=== PATIENT | male | born 2005 | race Caucasian/White ===

== ENCOUNTER 2025-05-22 15:59 | Inpatient (IN) ==
--- NOTE | 2025-05-22 16:19 | Emergency Department Note ---
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 He notes yesterday he noticed some tightness in his bilateral upper extremities. He did a full body workout in combination with rock climbing on Sunday. Following this he was having some pain in his bilateral arms. They got blood work and his CK was greater than 13,000 and referred him in. He denies any headache or change in vision. No chest pain or shortness of breath. No nausea, vomiting or diarrhea. No dysuria, urgency, or frequency. No other exacerbating or remitting factors. Patient denies any tingling or numbness throughout the arms or legs. ADDITIONAL HISTORY OBTAINED: Family is present bedside notes that [place] blood [place] [address]. Chronic Medical/Social Conditions Affecting Care: Per HPI PAST MEDICAL HISTORY:See Below PAST SURGICAL HISTORY:See Below FAMILY HISTORY:See Below SOCIAL HISTORY:See Below HOME MEDICATIONS:See Below ALLERGIES:See Below VITALS:See Below PHYSICAL EXAMINATION: GENERAL: Sitting up in bed, alert, well appearing, well nourished, no distress, non-toxic EYE EXAM: normal conjunctiva. OROPHARYNX: no exudate, no erythema, lips, buccal mucosa, and tongue normal and mucous membranes are moist NECK: supple, no nuchal rigidity, no adenopathy, non-tender LUNGS: Clear to auscultation. Normal chest wall mechanics HEART: no murmurs, S1 normal and S2 normal ABDOMEN: abdomen soft, non-tender, normo-active bowel sounds, no masses, no rebound or guarding. UPPER EXTREMITIES: upper extremities are grossly normal. LOWER EXTREMITIES: Flexion extension of bilateral shoulders elbows wrist and grass is intact with pain with extension of the right elbow. Tightness/fullness in the right biceps. Radial pulse 2 out of 4. Gross station intact. NEURO EXAM: Normal sensorium, cranial nerves II-XII grossly intact, normal speech, no gross weakness of arms, no gross weakness of legs. MEDICAL DECISION MAKING: Patient is a 20-year-old male who presents ER for the above-stated complaint. IV was established and blood work was obtained. Labs showed no significant leukocytosis or anemia. INR unremarkable. BMP was fairly reassuring. LFTs with an AST of 160 and ALT of 57. CK was elevated at 14,000. Lipase was normal. UA without hematuria. Patient was ordered to be liters of normal saline. Compartments were soft within his arms with good pulses and no tingling or numbness upon admission. Hospitalist was consulted due to the rhabdomyolysis and discussed for admission for further evaluation management and treatment. Consults/Care Managements Discussions: Per MDM Triage Nursing notes reviewed. Limited review of prior medical records performed Vital Signs: reviewed and remarkable for HTN Differential diagnosis: Infection, dehydration, metabolic abnormality, hypo/hyperglycemia, electrolyte disturbance, anemia, hypoxia, cardiac sources, intracerebral event, toxicologic, neurologic, as well as other pathologies. ER treatment provided: See below Diagnostics interpreted by me include EKG and cardiac monitoring as listed below: -Cardiac Monitoring: An order was placed for continuous cardiac monitoring. The monitor shows a rate of 70 with sinus rhythm. -ECG: none -Laboratory studies:Interpreted by me as stated above in MDM and shown below. Imaging studies: Xrays: As interpreted by me:none CTs show: none Procedures:none Critical Care: None Past Med/Surg History Problem List (Updated 05/22/25 @ 18:40 by Clay Hough DO) Arm pain (Acute) Transaminitis (Acute) Rhabdomyolysis (Acute) Social History Smoking Status: Never smoker Preferred Language: Jamaican Feels Safe at Home: Yes Allergies Allergies Allergy/AdvReac Type Severity Reaction Status Date / Time animal dander Allergy Severe Induces Verified 05/22/25 18:15 asthma attack, sneezing Milk Containing Products Allergy Intermediate Gastrointestinal Verified 05/22/25 18:15 (Dairy) Upset Home Meds Home Medications Medication Instructions Recorded Confirmed No Known Home Medications 05/22/25 05/22/25 Results & Data (ED) Vital Signs Vital Signs - 24 hr 05/22/25 16:07 05/22/25 16:32 05/22/25 17:51 Temperature 36.7 C Temperature Source Oral Pulse Rate 61 68 Pulse Rate [Apical] 67 Respiratory Rate 18 19 16 Respiratory Effort / Characteristics Non-Labored Spontaneous Non-Labored Spontaneous Respiratory Depth Normal Normal Respiratory Pattern Regular Blood Pressure 143/80 H Blood Pressure [Right Radial Artery] 177/81 H Blood Pressure Mean 101 Blood Pressure Mean [Right Radial Artery] 113 Pulse Oximetry 98 98 99 Oxygen Delivery Method Room Air Room Air Room Air Sepsis Recent Fever Within 48 Hours No Sepsis New/Unexplained Change in Mental Status N/A Sepsis Action Taken by Nursing No Action Required Laboratory Data 05/22/25 16:25 05/22/25 16:25 Lab Results 05/22/25 05/22/25 Range/Units 16:25 Unknown WBC 10.33 (4.8-10.8) K/ul RBC 5.11 (4.70-6.10) M/uL Hgb 15.0 (14.0-18.0) g/dl Hct 42.5 (42.0-52.0) % MCV 83.2 (80.0-100.0) fL MCH 29.4 (25.0-34.0) pg MCHC 35.3 (32.0-36.0) g/dL RDW Std Deviation 36.1 L (36.4-46.3) fL RDW Coeff of Maliha 12.0 (11.5-14.5) % Plt Count 215 (130-400) K/uL MPV 11.5 (9.4-12.4) fL Immature Gran % (Auto) 0.2 % Neut % (Auto) 65.8 % Lymph % (Auto) 20.4 % [place] % (Auto) 10.0 % Eos % (Auto) 3.4 % Baso % (Auto) 0.2 % Neut # (Auto) 6.80 H (1.40-6.50) K/uL Lymph # (Auto) 2.11 (1.20-3.40) K/uL [place] # (Auto) 1.03 H (0.11-0.59) K/uL Eos # (Auto) 0.35 (0.00-0.50) K/uL Baso # (Auto) 0.02 (0.00-0.20) K/uL Immature Gran # (Auto) 0.02 (0.01-0.20) K/uL PT 11.4 (9.0-12.0) Seconds INR 1.1 (0.9-1.1) Sodium 138 (136-145) mmol/L Potassium 4.1 (3.5-5.1) mmol/L Chloride 105 (98-107) mmol/L Carbon Dioxide 26 (21-32) mmol/L Anion Gap 7 (3-11) BUN 16 (6-23) mg/dl Creatinine 0.97 (0.6-1.4) mg/dl Est Cr Clr Drug Dosing 144.0 ml/min eGFR 113.90 BUN/Creatinine Ratio 16.5 (10-20) Glucose 93 (70-99(Fasting)) mg/dl Calcium 9.4 (8.6-10.3) mg/dl Total Bilirubin 0.9 (0.2-1.0) mg/dl AST 163 H (13-39) U/L ALT 57 H (7-52) U/L Alkaline Phosphatase 154 H (34-104) U/L Total Creatine Kinase 43349 H (30-223) U/L Total Protein 7.2 (6.0-8.3) gm/dl Albumin 4.5 (3.4-5.0) gm/dl Globulin 2.7 (2.5-4.0) gm/dl Albumin/Globulin Ratio 1.7 (0.9-2) Lipase 20 (11-82) U/L Urine Color Yellow Urine Appearance Clear (Clear) Urine pH 7.5 (4.5-7.5) Ur Specific [place] 1.004 (1.000-1.030) Urine Protein Negative (Negative) Urine Glucose (UA) Negative (Negative) Urine Ketones Negative (Negative) Urine Blood Negative (Negative) Urine Nitrite Negative (Negative) Urine Bilirubin Negative (Negative) Urine Urobilinogen Negative (Negative) Ur Leukocyte Esterase Negative (Negative) Urine Comment Administered Medications Sodium Chloride (Nss) 500 mls @ 175 mls/hr IV .Q2H52M [facility] Stop: 05/22/25 20:36 Last Admin: 05/22/25 18:24 Dose: 175 mls/hr Documented By: HARIS Discontinued Medications Sodium Chloride (Nss) 1,000 mls @ 999 mls/hr IV .Q1H1M [facility] Stop: 05/22/25 18:15 Last Infusion: 05/22/25 18:16 Dose: Infused Documented By: Admin: 05/22/25 17:11 Dose: 999 mls/hr Documented By: Infusion: 05/22/25 17:11 Dose: Infused Documented By: Admin: 05/22/25 16:20 Dose: 999 mls/hr Documented By: HARIS Discharge Plan Visit Data Chief Complaint: Abnormal Labs/Diagnostic Testing Stated Complaint: ABN LABS, IV FOR RHABDO, REF BY ED Provider: Clay Hough Discharge Problem: Rhabdomyolysis, Transaminitis, Arm pain Condition: Fair Forms Stand Alone Forms: [employer] Prescriptions Prescriptions: No Action No Known Home Medications Referrals Referrals: PCP,NO [Physician] - Discharge Problem: Rhabdomyolysis Qualifiers: Rhabdomyolysis type: non-traumatic Qualified Code(s): M62.82 - Rhabdomyolysis Arm pain Qualifiers: Laterality: bilateral Qualified Code(s): M79.601 - Pain in right arm
[2025-05-22] MEDS: SODIUM CHLORIDE 0.9% 1,000 ML IV SCH (16:20)
[2025-05-22 16:37] LABS: Hematocrit (blood only) 42.5 % (42.0-52.0); Hemoglobin 15.0 g/dl (14.0-18.0); Immature Granulocytes # (auto) 0.02 K/uL (0.01-0.20); Immature Granulocytes % (auto) 0.2 %; Mean Corpuscular Hemoglobin 29.4 pg (25.0-34.0); Mean Corpuscular Volume 83.2 fL (80.0-100.0); Platelet Count 215 K/uL (130-400); RDW Standard Deviation 36.1 fL (36.4-46.3); Red Blood Count 5.11 M/uL (4.70-6.10); White Blood Count 10.33 K/ul (4.8-10.8)
[2025-05-22 16:51] LABS: Appearance Urine Clear (Clear); Glucose Urine UA Negative (Negative)
[2025-05-22 16:55] LABS: Anion Gap 7.0 (3-11); Blood Urea Nitrogen 16.0 mg/dl (6-23); Calcium 9.4 mg/dl (8.6-10.3); Carbon Dioxide 26.0 mmol/L (21-32); Chloride 105.0 mmol/L (98-107); Creatinine Clr Calc Pharmacy 144.0 ml/min; Glucose 93.0 mg/dl (70-99(Fasting)); Potassium 4.1 mmol/L (3.5-5.1); Sodium 138.0 mmol/L (136-145)
[2025-05-22 17:04] LABS: INR 1.1 (0.9-1.1); Prothrombin Time 11.4 Seconds (9.0-12.0)
[2025-05-22 17:12] LABS: Alanine Aminotransferase 57.0 U/L (7-52); Albumin Globulin Ratio 1.7 (0.9-2); Alkaline Phosphatase 154.0 U/L (34-104); Bilirubin,Total 0.9 mg/dl (0.2-1.0); Globulin 2.7 gm/dl (2.5-4.0); Lipase 20.0 U/L (11-82); Total Protein 7.2 gm/dl (6.0-8.3)
[2025-05-22 17:17] LABS: Creatine Kinase 14588.0 U/L (30-223)
[2025-05-22] MEDS ORDERED: ALUMINUM/MAGNESIUM SUSP 30 ML UDC PO PRN (17:56)
[2025-05-22] MEDS ORDERED: ONDANSETRON INJ 2 MG/ML 2 ML VIAL IV PRN (17:56)
--- NOTE | 2025-05-22 18:05 | History & Physical Report ---
Date of Service May 22, 2025 Assessment & Plan (1) Rhabdomyolysis: Admission and Anticipated Discharge Date Admission Date: Mr. 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 on 05/22/2025, presented with one day of severe upper extremity muscle pain and found to has rhabdomyolysis with CK level of 15,000, his AST and ALT is also elevated no dark urine, no shortness of breath, no back pain. he will be admitted for IV fluid, monitor of creatinine function and monitoring of CK level. 1. acute rhabdomyolysis heavy lifting started 1-2 weeks ago symptom started since 05/21 IV fluid trend CK, creatinine and AST, ALT function discussed about oral hydration with 8-10 glass of water discussed about monitoring creatinine function discussed about no heavy lifting for minimum of 4 weeks History of Present Illness Chief Complaint: significant upper extremity pain since yesterday rhabdomyolysis (CK > 15,000) Primary Care Provider: [facility] Mr. 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 however, since yesterday he has significant upper extremity pain and came here for evaluation, found to has hypertension with SBP of 177/[place] [address] and AST 163 and ALT of 57, he will be admitted to medicine services for IV fluid for his rhabdomyolysis, denied any dark color urine, hematuria, no abdominal pain, no nausea, no vomiting discussed avoiding heavy lifting for 4 weeks and encourage drinking 8-10 glass of water daily for next 1-2 weeks his mother and his grandmother was updated in person Allergies Allergy/AdvReac Type Severity Reaction Status Date / Time animal dander Allergy Severe Induces Unverified 05/22/25 17:33 asthma attack, sneezing Milk Containing Products Allergy Intermediate Gastrointestinal Unverified 05/22/25 17:33 (Dairy) Upset Home Medications Medication Instructions Recorded Confirmed Type No Known Home Medications 05/22/25 05/22/25 History Past Med/Surg History Problem List (Updated 05/22/25 @ 18:02 by Zelda Lackey DO) Rhabdomyolysis Social History Smoking Status: Never smoker Preferred Language: Lithuanian Feels Safe at Home: Yes Review of Systems Review of Systems: Constitutional: No Weight Change, No Fever, No Chills, Cardiovascular: No Chest Pain, No SOB, No PND, No Dyspnea on Exertion, No Orthopnea, Respiratory: No Cough, No Sputum, No Wheezing, No Dyspnea Gastrointestinal: No Nausea, No Vomiting, No Diarrhea, No Constipation, No Pain, No Heartburn, No Anorexia, No Dysphagia MSK: + for muscle achiness; + for upper extrmeity pain Genitourinary: no dysuria; no dark color urine Neuro: No Weakness, No Numbness, No Paresthesias, No Loss of Consciousness, No Syncope, No Dizziness Heme/Lymph: No Bruising, No Bleeding, No Transfusions History, No Lymphadenopathy Endocrine: No Polyuria, No Polydipsia, No Temperature Intolerance Physical Exam Physical Exam: VITALS: Reviewed. WEIGHT/BMI reviewed. GEN: Healthy appearing, well-developed, NAD. PSYCH: Good Judgment. AOx3. Normal memory, mood, and affect. HEENT -Head: NC/AT; NECK: Supple, with no masses. CV: RRR, no m/r/g. LUNGS: CTAB, no w/r/c. ABD: Soft, NT/ND, NBS, no masses or organomegaly. : no CVA tenderness SKIN: Warm, well perfused. No skin rashes or abnormal lesions. MSK: No deformities, Normal gait. EXT: No clubbing, cyanosis, or edema. NEURO: AAOx3; no slurred speech; 5/5 strength. Results & Data Results & Data Vital Signs (Past 12 Hours) Vital Signs Temp Pulse Pulse Resp BP BP Pulse Ox 05/22/25 17:51 67 16 177/81 H 99 05/22/25 16:32 68 19 98 05/22/25 16:07 36.7 C 61 18 143/80 H 98 O2 Del Method 05/22/25 17:51 Room Air 05/22/25 16:32 Room Air 05/22/25 16:07 Room Air Laboratory Results Laboratory Results - last 72 hr 05/22/25 05/22/25 16:25 Unknown WBC 10.33 RBC 5.11 Hgb 15.0 Hct 42.5 MCV 83.2 MCH 29.4 MCHC 35.3 RDW Std Deviation 36.1 L RDW Coeff of [place] 12.0 Plt Count 215 MPV 11.5 Immature Gran % (Auto) 0.2 Neut % (Auto) 65.8 Lymph % (Auto) 20.4 [place] % (Auto) 10.0 Eos % (Auto) 3.4 Baso % (Auto) 0.2 Neut # (Auto) 6.80 H Lymph # (Auto) 2.11 [place] # (Auto) 1.03 H Eos # (Auto) 0.35 Baso # (Auto) 0.02 Immature Gran # (Auto) 0.02 PT 11.4 INR 1.1 Sodium 138 Potassium 4.1 Chloride 105 Carbon Dioxide 26 Anion Gap 7 BUN 16 Creatinine 0.97 Est Cr Clr Drug Dosing 144.0 eGFR 113.90 BUN/Creatinine Ratio 16.5 Glucose 93 Calcium 9.4 Total Bilirubin 0.9 AST 163 H ALT 57 H Alkaline Phosphatase 154 H Total Creatine Kinase 66981 H Total Protein 7.2 Albumin 4.5 Globulin 2.7 Albumin/Globulin Ratio 1.7 Lipase 20 Urine Color Yellow Urine Appearance Clear Urine pH 7.5 Ur Specific [place] 1.004 Urine Protein Negative Urine Glucose (UA) Negative Urine Ketones Negative Urine Blood Negative Urine Nitrite Negative Urine Bilirubin Negative Urine Urobilinogen Negative Ur Leukocyte Esterase Negative Urine Comment Medications Administered Current Inpatient Medications Acetaminophen (Acetaminophen 325 Mg Tab) 650 mg PO NOW [facility] Stop: 06/23/25 17:59 Al Hydrox/Mg Hydrox/Simethicone (Aluminum/Magnesium Susp 30 Ml Udc) 30 ml PO Q6H PRN PRN Reason: Dyspepsia Stop: 06/21/25 17:55 Sodium Chloride (Nss) 1,000 mls @ 999 mls/hr IV .Q1H1M [facility] Stop: 05/22/25 18:15 Last Admin: 05/22/25 17:11 Dose: 999 mls/hr Sodium Chloride (Nss) 500 mls @ 175 mls/hr IV .Q2H52M [facility] Stop: 05/22/25 20:36 Melatonin (Melatonin 3 Mg Tab) 3 mg PO HS PRN PRN Reason: Insomnia Stop: 06/21/25 17:55 Ondansetron HCl (Ondansetron Inj 2 Mg/Ml 2 Ml Vial) 4 mg IV Q6H PRN PRN Reason: Nausea Stop: 06/21/25 17:55 PG Care Time/CCT Total # of Minutes Spent Total Time Spent with Patient: Total time spent is greater than 50% in coordination of care (as documented) at patient's floor/unit and/or counseling patient: Coding Level of Care Code 07568 INT INP/OBS CARE MIN Diagnoses Rhabdomyolysis M62.82 Time Spent (min) 30
[2025-05-22] MEDS: SODIUM CHLORIDE 0.9% 500 ML IV SCH (18:24)
--- NOTE | 2025-05-22 20:23 | Orthopedic Consultation ---
Date of Consultation May 22, 2025 Assessment & Plan (1) Arm pain: (2) Transaminitis: (3) Rhabdomyolysis: Plan Admit for observation IV hydration and serial laboratory analysis. 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 At present he notes his pain is relatively well-managed he has not had any real significant escalating trouble. He is sitting comfortably and playing cards with several of his fellow teammates. He denies any nausea vomiting chest pain shortness of breath fever chills. Physical exam reveals some fullness of the distal biceps and the proximal forearm right slightly greater than left he is right-hand dominant. There is no extensive pain with passive stretch of the elbow or of the wrist. Median radial ulnar suprascapular x-ray nerves are all normal. Pulses are good capillary refill is brisk. Laboratory work reveals CPK levels in the 13-15,000 range. LFTs slightly elevated. Urinalysis is clean. Patient states that his urine is not changed in color and is well hydrated and light yellow. He denies any back pain. Assessment rhabdomyolysis acute bilateral upper extremities right slightly greater than left. No evidence of compartment syndrome by physical exam or by appearance of the patient. Plan is to continue with hydration and serial laboratory assessments. Will need to avoid any heavy exertion with his arms for at least another 2 to 3 weeks. (1) Arm pain Laterality: bilateral Qualified Code(s): M79.601 - Pain in right arm; M79.602 - Pain in left arm (3) Rhabdomyolysis Rhabdomyolysis type: non-traumatic Qualified Code(s): M62.82 - Rhabdomyolysis
[2025-05-22] MEDS: ACETAMINOPHEN 325 MG TAB PO SCH (22:04)
[2025-05-22] MEDS: MELATONIN 3 MG TAB PO PRN (22:04)
[2025-05-23 07:36] LABS: Alanine Aminotransferase 56.0 U/L (7-52); Albumin Globulin Ratio 1.7 (0.9-2); Alkaline Phosphatase 121.0 U/L (34-104); Anion Gap 5.0 (3-11); Bilirubin,Total 1.4 mg/dl (0.2-1.0); Blood Urea Nitrogen 11.0 mg/dl (6-23); Calcium 9.2 mg/dl (8.6-10.3); Carbon Dioxide 27.0 mmol/L (21-32); Chloride 107.0 mmol/L (98-107); Creatine Kinase 9585.0 U/L (30-223); Creatinine Clr Calc Pharmacy 155.2 ml/min; Globulin 2.3 gm/dl (2.5-4.0); Glucose 101.0 mg/dl (70-99(Fasting)); Magnesium 1.8 mg/dl (1.7-2.4); Potassium 4.0 mmol/L (3.5-5.1); Sodium 139.0 mmol/L (136-145); Total Protein 6.3 gm/dl (6.0-8.3)
[2025-05-23] MEDS: SODIUM CHLORIDE 0.9% 1,000 ML IV SCH (07:45)
--- NOTE | 2025-05-23 13:23 | Hospitalist Progress Note ---
Date of Service May 23, 2025 Assessment & Plan (1) Rhabdomyolysis: Plan Mr. Lee Meyer is a 20 yo male with no PMH, he been having resuming strenous exericse for one week, on 05/22/2025, presented with one day of significant upper extremity pain, and found to has rhabdomolysis with CK > 15k, started on IV fluid, orthopedic following the patient, monitor for compartment sydnrome acute rhabdomyolysis upper extremity pain IV fluid, monitor for calcium, phosphate, magnesium and CK level dc barrier, ongoing significant upper extremity pain and elevaed CK level of 9000. discussed about weight lifting restriction for minimum of 4 weeks. Admission and Anticipated Discharge Date Admission Date: May 22, 2025 Subjective patient still have significant upper extremity pain and swelling his CK level still elevated; increasing the IV fluid no dark urine, no abdominal pain discussed about weight restriction for minimal of 4 weeks and oral hydration mother and grandmother updated at bedside Physical Exam Physical Exam: VITALS: Reviewed. WEIGHT/BMI reviewed. GEN: Healthy appearing, well-developed, NAD. MSK: + for edema of upper extremity no crepitus appreciated tender to palpation -Head: NC/AT; NECK: Supple, with no masses. CV: RRR, no m/r/g. LUNGS: on room air; no respiratory distress SKIN: Warm, well perfused. No skin rashes or abnormal lesions. NEURO: AAOx3; Results & Data Results & Data Vital Signs (Past 12 Hours) Vital Signs Temp Pulse Resp BP Pulse Ox O2 Del Method 05/23/25 07:52 36.8 C 55 L 16 132/72 99 Room Air Laboratory Results Laboratory Results - last 72 hr 05/22/25 05/22/25 05/23/25 16:25 Unknown 06:07 WBC 10.33 RBC 5.11 Hgb 15.0 Hct 42.5 MCV 83.2 MCH 29.4 MCHC 35.3 RDW Std Deviation 36.1 L RDW Coeff of [place] 12.0 Plt Count 215 MPV 11.5 Immature Gran % (Auto) 0.2 Neut % (Auto) 65.8 Lymph % (Auto) 20.4 [place] % (Auto) 10.0 Eos % (Auto) 3.4 Baso % (Auto) 0.2 Neut # (Auto) 6.80 H Lymph # (Auto) 2.11 [place] # (Auto) 1.03 H Eos # (Auto) 0.35 Baso # (Auto) 0.02 Immature Gran # (Auto) 0.02 PT 11.4 INR 1.1 Sodium 138 139 Potassium 4.1 4.0 Chloride 105 107 Carbon Dioxide 26 27 Anion Gap 7 5 BUN 16 11 Creatinine 0.97 0.90 Est Cr Clr Drug Dosing 144.0 155.2 eGFR 113.90 124.61 BUN/Creatinine Ratio 16.5 12.2 Glucose 93 101 H Calcium 9.4 9.2 Magnesium 1.8 Total Bilirubin 0.9 1.4 H D AST 163 H 133 H ALT 57 H 56 H Alkaline Phosphatase 154 H 121 H Total Creatine Kinase 31144 H 9585 H Troponin I High Sens 9.2 Total Protein 7.2 6.3 Albumin 4.5 4.0 Globulin 2.7 2.3 L Albumin/Globulin Ratio 1.7 1.7 Lipase 20 Urine Color Yellow Urine Appearance Clear Urine pH 7.5 Ur Specific [place] 1.004 Urine Protein Negative Urine Glucose (UA) Negative Urine Ketones Negative Urine Blood Negative Urine Nitrite Negative Urine Bilirubin Negative Urine Urobilinogen Negative Ur Leukocyte Esterase Negative Urine Comment Diagnostic Findings Laboratory Results WBC 10.33 K/ul (4.8-10.8) 05/22/25 16:25 RBC 5.11 M/uL (4.70-6.10) 05/22/25 16:25 Hgb 15.0 g/dl (14.0-18.0) 05/22/25 16:25 Hct 42.5 % (42.0-52.0) 05/22/25 16:25 MCV 83.2 fL (80.0-100.0) 05/22/25 16:25 MCH 29.4 pg (25.0-34.0) 05/22/25 16:25 MCHC 35.3 g/dL (32.0-36.0) 05/22/25 16:25 RDW Std Deviation 36.1 fL (36.4-46.3) L 05/22/25 16:25 RDW Coeff of [place] 12.0 % (11.5-14.5) 05/22/25 16:25 Plt Count 215 K/uL (130-400) 05/22/25 16:25 MPV 11.5 fL (9.4-12.4) 05/22/25 16:25 Immature Gran % (Auto) 0.2 % 05/22/25 16:25 Neut % (Auto) 65.8 % 05/22/25 16:25 Lymph % (Auto) 20.4 % 05/22/25 16:25 [place] % (Auto) 10.0 % 05/22/25 16:25 Eos % (Auto) 3.4 % 05/22/25 16:25 Baso % (Auto) 0.2 % 05/22/25 16:25 Neut # (Auto) 6.80 K/uL (1.40-6.50) H 05/22/25 16:25 Lymph # (Auto) 2.11 K/uL (1.20-3.40) 05/22/25 16:25 [place] # (Auto) 1.03 K/uL (0.11-0.59) H 05/22/25 16:25 Eos # (Auto) 0.35 K/uL (0.00-0.50) 05/22/25 16:25 Baso # (Auto) 0.02 K/uL (0.00-0.20) 05/22/25 16:25 Immature Gran # (Auto) 0.02 K/uL (0.01-0.20) 05/22/25 16:25 PT 11.4 Seconds (9.0-12.0) 05/22/25 16:25 INR 1.1 (0.9-1.1) 05/22/25 16:25 Sodium 139 mmol/L (136-145) 05/23/25 06:07 Potassium 4.0 mmol/L (3.5-5.1) 05/23/25 06:07 Chloride 107 mmol/L (98-107) 05/23/25 06:07 Carbon Dioxide 27 mmol/L (21-32) 05/23/25 06:07 Anion Gap 5 (3-11) 05/23/25 06:07 BUN 11 mg/dl (6-23) 05/23/25 06:07 Creatinine 0.90 mg/dl (0.6-1.4) 05/23/25 06:07 Est Cr Clr Drug Dosing 155.2 ml/min 05/23/25 06:07 eGFR 124.61 05/23/25 06:07 BUN/Creatinine Ratio 12.2 (10-20) 05/23/25 06:07 Glucose 101 mg/dl (70-99(Fasting)) H 05/23/25 06:07 Calcium 9.2 mg/dl (8.6-10.3) 05/23/25 06:07 Magnesium 1.8 mg/dl (1.7-2.4) 05/23/25 06:07 Total Bilirubin 1.4 mg/dl (0.2-1.0) H D 05/23/25 06:07 AST 133 U/L (13-39) H 05/23/25 06:07 ALT 56 U/L (7-52) H 05/23/25 06:07 Alkaline Phosphatase 121 U/L (34-104) H 05/23/25 06:07 Total Creatine Kinase 9585 U/L (30-223) H 05/23/25 06:07 Troponin I High Sens 9.2 pg/ml (0-20) 05/23/25 06:07 Total Protein 6.3 gm/dl (6.0-8.3) 05/23/25 06:07 Albumin 4.0 gm/dl (3.4-5.0) 05/23/25 06:07 Globulin 2.3 gm/dl (2.5-4.0) L 05/23/25 06:07 Albumin/Globulin Ratio 1.7 (0.9-2) 05/23/25 06:07 Lipase 20 U/L (11-82) 05/22/25 16:25 Urine Color Yellow 05/22/25 Unknown Urine Appearance Clear (Clear) 05/22/25 Unknown Urine pH 7.5 (4.5-7.5) 05/22/25 Unknown Ur Specific [place] 1.004 (1.000-1.030) 05/22/25 Unknown Urine Protein Negative (Negative) 05/22/25 Unknown Urine Glucose (UA) Negative (Negative) 05/22/25 Unknown Urine Ketones Negative (Negative) 05/22/25 Unknown Urine Blood Negative (Negative) 05/22/25 Unknown Urine Nitrite Negative (Negative) 05/22/25 Unknown Urine Bilirubin Negative (Negative) 05/22/25 Unknown Urine Urobilinogen Negative (Negative) 05/22/25 Unknown Ur Leukocyte Esterase Negative (Negative) 05/22/25 Unknown Urine Comment 05/22/25 Unknown PG Care Time/CCT Total # of Minutes Spent Total Time Spent with Patient: Total time spent is greater than 50% in coordination of care (as documented) at patient's floor/unit and/or counseling patient: Coding Level of Care Code 82475 SUB INP/OBS CARE 10/11MIN Diagnoses Rhabdomyolysis M62.82 Rhabdomyolysis type: non-traumatic Time Spent (min) 25 (1) Rhabdomyolysis Rhabdomyolysis type: non-traumatic Qualified Code(s): M62.82 - Rhabdomyolysis
[2025-05-23] MEDS: KETOROLAC TROMETHAMINE 15 MG/ML VIAL IM PRN (15:08)
[2025-05-23 15:39] LABS: Alanine Aminotransferase 62.0 U/L (7-52); Albumin Globulin Ratio 1.7 (0.9-2); Alkaline Phosphatase 119.0 U/L (34-104); Anion Gap 3.0 (3-11); Bilirubin,Total 1.0 mg/dl (0.2-1.0); Blood Urea Nitrogen 10.0 mg/dl (6-23); Calcium 8.8 mg/dl (8.6-10.3); Carbon Dioxide 27.0 mmol/L (21-32); Chloride 109.0 mmol/L (98-107); Creatinine Clr Calc Pharmacy 139.7 ml/min; Globulin 2.3 gm/dl (2.5-4.0); Glucose 112.0 mg/dl (70-99(Fasting)); Potassium 4.1 mmol/L (3.5-5.1); Sodium 139.0 mmol/L (136-145); Total Protein 6.3 gm/dl (6.0-8.3)
[2025-05-23 19:01] LABS: Anion Gap 8.0 (3-11); Blood Urea Nitrogen 12.0 mg/dl (6-23); Calcium 8.6 mg/dl (8.6-10.3); Carbon Dioxide 23.0 mmol/L (21-32); Chloride 108.0 mmol/L (98-107); Creatinine Clr Calc Pharmacy 164.3 ml/min; Glucose 121.0 mg/dl (70-99(Fasting)); Potassium 3.9 mmol/L (3.5-5.1); Sodium 139.0 mmol/L (136-145)
[2025-05-23 19:19] LABS: Creatine Kinase 10965.0 U/L (30-223)
[2025-05-24 07:23] LABS: Anion Gap 4.0 (3-11); Blood Urea Nitrogen 8.0 mg/dl (6-23); Calcium 8.7 mg/dl (8.6-10.3); Carbon Dioxide 24.0 mmol/L (21-32); Chloride 111.0 mmol/L (98-107); Creatinine Clr Calc Pharmacy 196.7 ml/min; Glucose 100.0 mg/dl (70-99(Fasting)); Potassium 4.1 mmol/L (3.5-5.1); Sodium 139.0 mmol/L (136-145)
[2025-05-24 07:56] LABS: Alanine Aminotransferase 65.0 U/L (7-52); Albumin Globulin Ratio 1.9 (0.9-2); Alkaline Phosphatase 110.0 U/L (34-104); Bilirubin,Total 1.1 mg/dl (0.2-1.0); Creatine Kinase 9663.0 U/L (30-223); Globulin 2.0 gm/dl (2.5-4.0); Magnesium 1.7 mg/dl (1.7-2.4); Total Protein 5.7 gm/dl (6.0-8.3)
--- NOTE | 2025-05-24 09:35 | Orthopedic Progress Note ---
Date of Service May 24, 2025 Assessment & Plan Admission and Anticipated Discharge Date Admission Date: May 22, 2025 Orthopedic Progress Note Inpatient rounds. Patient is roughly 36 hours into this admission. At this point in time he has no significant discomfort. He slept well all night. He denies any chest pain shortness of breath fever chills nausea numbing or headache. Vital signs are stable he is afebrile. Neurovascular check both upper extremities median radial ulnar suprascapular x- ray nerves are normal. Elbow range of motion is much better. Compartments are soft. His main issue is terminal extension of the elbow but that is improved as well. He has full pronation supination at the elbow. Wrist function and hand function is completely normal. Laboratory work remains stable enzymes liver function chambers slightly decreased CPK levels not been above 10,000 now for 24 hours creatinine and BUN function is excellent. Assessment overall doing better there is no risk of compartment syndrome at this point in time. His enzyme levels have decreased by 33% since its peak and have not exceeded 10,000 for over 24 hours. He is eating and drinking well he is ambulatory. He does not require any pain management. There is no risk for compartment syndrome at this point in time. Plan at this point times ultimately up to hospitalist but see no indication for any additional IV fluid or major inpatient management at this point in time he can be managed successfully with activity limitations appropriate hydration orally and follow-up with his primary care team physician Dr. Candi Chilel.
[2025-05-24] MEDS ORDERED: SODIUM CHLORIDE 0.9% 1,000 ML IV SCH (10:15)
[2025-05-24] MEDS: SODIUM CHLORIDE 0.9% 1,000 ML IV SCH ×2 (10:32→14:59)
[2025-05-24 13:31] LABS: Anion Gap 4.0 (3-11); Blood Urea Nitrogen 7.0 mg/dl (6-23); Calcium 8.5 mg/dl (8.6-10.3); Carbon Dioxide 26.0 mmol/L (21-32); Chloride 111.0 mmol/L (98-107); Creatinine Clr Calc Pharmacy 158.7 ml/min; Glucose 118.0 mg/dl (70-99(Fasting)); Potassium 4.1 mmol/L (3.5-5.1); Sodium 141.0 mmol/L (136-145)
[2025-05-24 13:56] LABS: Alanine Aminotransferase 74.0 U/L (7-52); Albumin Globulin Ratio 2.1 (0.9-2); Alkaline Phosphatase 114.0 U/L (34-104); Bilirubin,Total 0.9 mg/dl (0.2-1.0); Creatine Kinase 10391.0 U/L (30-223); Globulin 1.9 gm/dl (2.5-4.0); Total Protein 5.9 gm/dl (6.0-8.3)
--- NOTE | 2025-05-24 18:22 | Hospitalist Progress Note ---
Date of Service May 24, 2025 Assessment & Plan (1) Rhabdomyolysis: Plan Mr. Lee Meyer is a 20 yo male with no PMH, he been having resuming strenous exericse for one week, on 05/22/2025, presented with one day of significant upper extremity pain, and found to has rhabdomolysis with CK > 15k, started on IV fluid, orthopedic following the patient, monitor for compartment sydnrome his ck level still elevated at 9500-00336, IV fluid increased to 300 cc/hours. acute rhabdomyolysis upper extremity pain IV fluid, monitor for calcium, phosphate, magnesium and CK level dc barrier, CK level has not downtrend and elevaed CK level of 9000. discussed about weight lifting restriction for minimum of 4 weeks. Admission and Anticipated Discharge Date Admission Date: May 22, 2025 Subjective his CK has plateu but still elevated at 90-100k IV fluid increased to 300cc/hours pain level stable, no black color urine Creatinine fucntion stable, patient eager to be discharge but was convince to stay risk of kidney injury, explained her mother was updated twice today Review of Systems Review of Systems: : no dark color urine MSK: no worsening upper extremity pain heart: no chest pain respiratory: no shortness of breath Physical Exam Physical Exam: VITALS: Reviewed. WEIGHT/BMI reviewed. GEN: Healthy appearing, well-developed, NAD. MSK: + for edema of upper extremity no crepitus appreciated tender to palpation -Head: NC/AT; NECK: Supple, with no masses. CV: RRR, no m/r/g. LUNGS: on room air; no respiratory distress SKIN: Warm, well perfused. No skin rashes or abnormal lesions. NEURO: AAOx3; Results & Data Results & Data Vital Signs (Past 12 Hours) Vital Signs Temp Pulse Resp BP Pulse Ox O2 Del Method 05/24/25 15:07 36.5 C 52 L 15 153/81 H 96 Room Air 05/24/25 07:50 36.4 C L 55 L 18 134/78 98 Room Air Laboratory Results Laboratory Results WBC 10.33 K/ul (4.8-10.8) 05/22/25 16:25 RBC 5.11 M/uL (4.70-6.10) 05/22/25 16:25 Hgb 15.0 g/dl (14.0-18.0) 05/22/25 16:25 Hct 42.5 % (42.0-52.0) 05/22/25 16: MCV 83.2 fL (80.0-100.0) 05/22/25 16: MCH 29.4 pg (25.0-34.0) 05/22/25 16: MCHC 35.3 g/dL (32.0-36.0) 05/22/25 16: RDW Std Deviation 36.1 fL (36.4-46.3) L 05/22/25 16: RDW Coeff of Maliha 12.0 % (11.5-14.5) 05/22/25: Plt Count 215 K/uL (130-400) 05/22/25 16: MPV 11.5 fL (9.4-12.4) 05/22/25 16:25 Immature Gran % (Auto) 0.2 % 05/22/25 16:25 Neut % (Auto) 65.8 % 05/22/25 16:25 Lymph % (Auto) 20.4 % 05/22/25 16:25 [place] % (Auto) 10.0 % 05/22/25 16:25 Eos % (Auto) 3.4 % 05/22/25 16:25 Baso % (Auto) 0.2 % 05/22/25 16:25 Neut # (Auto) 6.80 K/uL (1.40-6.50) H 05/22/25 16:25 Lymph # (Auto) 2.11 K/uL (1.20-3.40) 05/22/25 16:25 [place] # (Auto) 1.03 K/uL (0.11-0.59) H 05/22/25 16:25 Eos # (Auto) 0.35 K/uL (0.00-0.50) 05/22/25 16:25 Baso # (Auto) 0.02 K/uL (0.00-0.20) 05/22/25 16: Immature Gran # (Auto) 0.02 K/uL (0.01-0.20) 05/22/25 16: PT 11.4 Seconds (9.0-12.0) 05/22/25 16:25 INR 1.1 (0.9-1.1) 05/22/25 16:25 Sodium 141 mmol/L (136-145) 05/24/25 13:01 Potassium 4.1 mmol/L (3.5-5.1) 05/24/25 13:01 Chloride 111 mmol/L (98-107) H 05/24/25 13:01 Carbon Dioxide 26 mmol/L (21-32) 05/24/25 13:01 Anion Gap 4 (3-11) 05/24/25 13:01 BUN 7 mg/dl (6-23) 05/24/25 13:01 Creatinine 0.88 mg/dl (0.6-1.4) 05/24/25 13:01 Est Cr Clr Drug Dosing 158.7 ml/min 05/24/25 13:01 eGFR 125.46 05/24/25 13:01 BUN/Creatinine Ratio 8.0 (10-20) L 05/24/25 13:01 Glucose 118 mg/dl (70-99(Fasting)) H 05/24/25 13:01 Calcium 8.5 mg/dl (8.6-10.3) L 05/24/25 13:01 Ionized Calcium 1.14 mmol/L (1.12-1.32) 05/24/25 13:01 Phosphorus 4.0 mg/dl (2.5-4.9) 05/24/25 06:38 Magnesium 1.7 mg/dl (1.7-2.4) 05/24/25 06:38 Total Bilirubin 0.9 mg/dl (0.2-1.0) 05/24/25 13:01 AST 152 U/L (13-39) H 05/24/25 13:01 ALT 74 U/L (7-52) H 05/24/25 13:01 Alkaline Phosphatase 114 U/L (34-104) H 05/24/25 13:01 Total Creatine Kinase 34061 U/L (30-223) H 05/24/25 13:01 Troponin I High Sens 9.2 pg/ml (0-20) 05/23/25 06:07 Total Protein 5.9 gm/dl (6.0-8.3) L 05/24/25 13:01 Albumin 4.0 gm/dl (3.4-5.0) 05/24/25 13:01 Globulin 1.9 gm/dl (2.5-4.0) L 05/24/25 13:01 Albumin/Globulin Ratio 2.1 (0.9-2) H 05/24/25 13:01 Lipase 20 U/L (11-82) 05/22/25 16:25 Urine Color Yellow 05/22/25 Unknown Urine Appearance Clear (Clear) 05/22/25 Unknown Urine pH 7.5 (4.5-7.5) 05/22/25 Unknown Ur Specific Sold[place] 1.004 (1.000-1.030) 05/22/25 Unknown Urine Protein Negative (Negative) 05/22/25 Unknown Urine Glucose (UA) Negative (Negative) 05/22/25 Unknown Urine Ketones Negative (Negative) 05/22/25 Unknown Urine Blood Negative (Negative) 05/22/25 Unknown Urine Nitrite Negative (Negative) 05/22/25 Unknown Urine Bilirubin Negative (Negative) 05/22/25 Unknown Urine Urobilinogen Negative (Negative) 05/22/25 Unknown Ur Leukocyte Esterase Negative (Negative) 05/22/25 Unknown Urine Comment 05/22/25 Unknown PG Care Time/CCT Total # of Minutes Spent Total Time Spent with Patient: Total time spent is greater than 50% in coordination of care (as documented) at patient's floor/unit and/or counseling patient: Coding Level of Care Code 94456 SUB INP/OBS CARE 10/11MIN Diagnoses Rhabdomyolysis M62.82 Rhabdomyolysis type: non-traumatic Time Spent (min) 25 (1) Rhabdomyolysis Rhabdomyolysis type: non-traumatic Qualified Code(s): M62.82 - Rhabdomyolysis
[2025-05-25 08:18] LABS: Alanine Aminotransferase 56.0 U/L (7-52); Albumin Globulin Ratio 1.9 (0.9-2); Alkaline Phosphatase 79.0 U/L (34-104); Anion Gap 3.0 (3-11); Bilirubin,Total 0.6 mg/dl (0.2-1.0); Blood Urea Nitrogen 7.0 mg/dl (6-23); Calcium 6.3 mg/dl (8.6-10.3); Carbon Dioxide 20.0 mmol/L (21-32); Chloride 119.0 mmol/L (98-107); Creatinine Clr Calc Pharmacy 258.6 ml/min; Globulin 1.5 gm/dl (2.5-4.0); Glucose 82.0 mg/dl (70-99(Fasting)); Potassium 3.1 mmol/L (3.5-5.1); Sodium 142.0 mmol/L (136-145); Total Protein 4.3 gm/dl (6.0-8.3)
[2025-05-25] MEDS: POTASSIUM CHLORIDE CRTAB 20 MEQ TABCR PO SCH (09:14)
[2025-05-25] MEDS: POTASSIUM CHLORIDE 20 MEQ/15 ML UDC PO ONE (11:02)
[2025-05-25 12:14] LABS: Magnesium 1.3 mg/dl (1.7-2.4)
--- NOTE | 2025-05-25 13:02 | Communication Note ---
Date of Service: May 25, [address] Vasquez and discussed about whether IV fluid is warranted given now that CK level is plateau is slowing downtrending Dr. Vasquez explained that Mr. Lee Meyer can be seen daily in the sport medicine clinics. and continue to has daily evaluation of creatinine function, CK level at this point, Dr. Wells explained that his symptoms from rhabdomyolysis is resolved and improving and no urinary change and their clinics monitor the patient on regular basis. and they no longer suspect patient is at risk of kidney injury. They willing to direct the patient to higher level of care if there is clinical change
[2025-05-25 15:27] LABS: Alanine Aminotransferase 90.0 U/L (7-52); Albumin Globulin Ratio 1.9 (0.9-2); Alkaline Phosphatase 122.0 U/L (34-104); Anion Gap 5.0 (3-11); Bilirubin,Total 1.1 mg/dl (0.2-1.0); Blood Urea Nitrogen 9.0 mg/dl (6-23); Calcium 9.0 mg/dl (8.6-10.3); Carbon Dioxide 27.0 mmol/L (21-32); Chloride 107.0 mmol/L (98-107); Creatine Kinase 9144.0 U/L (30-223); Creatinine Clr Calc Pharmacy 118.4 ml/min; Globulin 2.3 gm/dl (2.5-4.0); Glucose 90.0 mg/dl (70-99(Fasting)); Magnesium 1.7 mg/dl (1.7-2.4); Potassium 4.5 mmol/L (3.5-5.1); Sodium 139.0 mmol/L (136-145); Total Protein 6.7 gm/dl (6.0-8.3)
--- NOTE | 2025-05-25 17:05 | Orthopedic Progress Note ---
Date of Service May 25, 2025 Assessment & Plan Admission and Anticipated Discharge Date Admission Date: May 22, 2025 Orthopedic Progress Note Patient resting comfortably in bed. Denies chest pain shortness of breath fever chills nausea vomiting or headache. Denies any change in the color of his urine. He has been off IV fluid now for several hours. He did receive potassium supplementation twice today both within 4 hours. Has not had pain medication for over 30 hours. Denies any numbness or tingling. Vital signs are stable he is afebrile. Elbow range of motion is full flexion full pronation full supination extension to -5. Palpation of the compartments does not reveal anything that is tender or produces pitting. There is some minor firmness there. He has no pain with passive stretch. Peripheral nerve function of the median, radial, ulnar ,suprascapular and axillary nerves is normal. He has no other extremities that really bother him. Left arm is virtually fine. Laboratory data reveals his potassium is now 4.5. Creatinine is now 1.18. This is off IV fluid for several hours and post potassium supplementation x 2. He has been receiving anywhere from 250 to 300 cc or more an hour of IV fluid for the last 48 hours. This has likely caused significant hemodilution and is responsible for some of the changes noted in his laboratory work but is still worthy of repeating again tomorrow. Assessment :rhabdomyolysis seems to be stable at this point in time. CPK has remained below 10,000 now for 2 days. He has not had any change in the color of his urine. Plan at this point in time is to go with an oral challenge and reassess the potential need for restarting fluids based on his clinical and laboratory scenario. He can be followed in our clinic by Dr. Chilel on a daily basis with laboratories checked as needed after his discharge tomorrow. This was discussed in detail with the hospitalist Dr Lackey in person [id number]. Mother and patient are also in agreement. Continue to follow clinically and carefully.
--- NOTE | 2025-05-25 17:24 | Hospitalist Progress Note ---
Date of Service May 25, 2025 Assessment & Plan (1) Rhabdomyolysis: Plan Mr. Lee Meyer is a 20 yo male with no PMH, he been having resuming strenous exericse for one week, on 05/22/2025, presented with one day of significant upper extremity pain, and found to has rhabdomolysis with CK > 15k, started on IV fluid, orthopedic following the patient, monitor for compartment sydnrome his ck level still elevated at 9500-06201, IV fluid increased to 300 cc/hours. acute rhabdomyolysis upper extremity pain his CK level since plateau however, creatinine improve to .8---> 1.2 Dr. Vasquez provide valuable input over his care low risk of KERRY, but plan for monitor on oral hydration overnight if creatinine downtrend, then ok sport medicine team also agreed for daily creatinine value Admission and Anticipated Discharge Date Admission Date: May 22, 2025 Subjective his CK level since plateau however, creatinine value slightly increase from 0.8--> 1.18 he's was on 300cc/hours till 2pm spoke [address] Dr. Vasquez, plan for oral hydration overnight if creatinine remained stable, then ok home has hypokalemia and hypomagnesimia s/p repletion mother and patient updated multiple time throughout the day Review of Systems Review of Systems: General: no fever : no dark color urine chest: no chest pain MSK: forearm pain improving; no back pain no neck pain lung: no shortness of breath chest: no chest pain Physical Exam Physical Exam: VITALS: Reviewed. WEIGHT/BMI reviewed. GEN: Healthy appearing, well-developed, NAD. MSK: + for edema of upper extremity no crepitus appreciated tender to palpation -Head: NC/AT; NECK: Supple, with no masses. CV: RRR, no m/r/g. LUNGS: on room air; no respiratory distress no wheezing Back: no presacral edema SKIN: Warm, well perfused. No skin rashes or abnormal lesions. NEURO: AAOx3; Results & Data Results & Data Vital Signs (Past 12 Hours) Vital Signs Temp Pulse Pulse Resp BP Pulse Ox O2 Del Method 05/25/25 15:00 36.8 C 55 L 18 153/76 H 98 Room Air 05/25/25 07:22 36.5 C 51 L 16 128/68 99 Room Air Laboratory Results Laboratory Results - last 72 hr 05/23/25 05/23/25 05/23/25 06:07 15:04 18:30 Sodium 139 139 139 Potassium 4.0 4.1 3.9 Chloride 107 109 H 108 H Carbon Dioxide 27 27 23 Anion Gap 5 3 8 BUN 11 10 12 Creatinine 0.90 1.00 0.85 Est Cr Clr Drug Dosing 155.2 139.7 164.3 eGFR 124.61 109.81 126.78 BUN/Creatinine Ratio 12.2 10.0 14.1 Glucose 101 H 112 H 121 H Calcium 9.2 8.8 8.6 Ionized Calcium 1.15 Phosphorus 4.5 Magnesium 1.8 Total Bilirubin 1.4 H D 1.0 AST 133 H 142 H ALT 56 H 62 H Alkaline Phosphatase 121 H 119 H Total Creatine Kinase 9585 H 26810 H Troponin I High Sens 9.2 Total Protein 6.3 6.3 Albumin 4.0 4.0 Globulin 2.3 L 2.3 L Albumin/Globulin Ratio 1.7 1.7 05/24/25 05/24/25 05/25/25 06:38 13:01 06:58 Sodium 139 141 142 Potassium 4.1 4.1 3.1 L D Chloride 111 H 111 H 119 H Carbon Dioxide 24 26 20 L Anion Gap 4 4 3 BUN 8 7 7 Creatinine 0.71 0.88 0.54 L D Est Cr Clr Drug Dosing 196.7 158.7 258.6 eGFR 133.86 125.46 145.40 BUN/Creatinine Ratio 11.3 8.0 L 13.0 Glucose 100 H 118 H 82 Calcium 8.7 8.5 L 6.3 L D Ionized Calcium 1.23 1.14 Phosphorus 4.0 Magnesium 1.7 1.3 L Total Bilirubin 1.1 H 0.9 0.6 AST 139 H 152 H 102 H ALT 65 H 74 H 56 H Alkaline Phosphatase 110 H 114 H 79 Total Creatine Kinase 9663 H 90312 H Troponin I High Sens Total Protein 5.7 L 5.9 L 4.3 L D Albumin 3.7 4.0 2.8 L Globulin 2.0 L 1.9 L 1.5 L Albumin/Globulin Ratio 1.9 2.1 H 1.9 05/25/25 05/25/25 07:36 14:17 Sodium 139 Potassium 4.5 D Chloride 107 Carbon Dioxide 27 Anion Gap 5 BUN 9 Creatinine 1.18 D Est Cr Clr Drug Dosing 118.4 eGFR 90.03 BUN/Creatinine Ratio 7.6 L Glucose 90 Calcium 9.0 D Ionized Calcium 1.22 1.19 Phosphorus Magnesium 1.7 Total Bilirubin 1.1 H D AST 154 H ALT 90 H Alkaline Phosphatase 122 H Total Creatine Kinase 8706 H 9144 H Troponin I High Sens Total Protein 6.7 D Albumin 4.4 Globulin 2.3 L Albumin/Globulin Ratio 1.9 Diagnostic Findings Current Inpatient Medications Acetaminophen (Acetaminophen 325 Mg Tab) 650 mg PO [facility] Stop: 06/23/25 17:59 Last Admin: 05/23/25 13:16 Dose: 650 mg Hydrocodone Bitart/Acetaminophen (Hydrocodone/Acetaminophen 10/325 Tab) 1 tab PO Q6H PRN PRN Reason: Pain Stop: 06/06/25 17:49 Last Admin: 05/23/25 22:47 Dose: 1 tab Al Hydrox/Mg Hydrox/Simethicone (Aluminum/Magnesium Susp 30 Ml Udc) 30 ml PO Q6H PRN PRN Reason: Dyspepsia Stop: 06/21/25 17:55 Melatonin (Melatonin 3 Mg Tab) 3 mg PO HS PRN PRN Reason: Insomnia Stop: 06/21/25 17:55 Last Admin: 05/23/25 22:47 Dose: 3 mg Ondansetron HCl (Ondansetron Inj 2 Mg/Ml 2 Ml Vial) 4 mg IV Q6H PRN PRN Reason: Nausea Stop: 06/21/25 17:55 Potassium Chloride (Potassium Chloride Crtab 20 Meq Tabcr) 40 meq PO QAM TA Stop: 06/24/25 09:09 Last Admin: 05/25/25 09:14 Dose: 40 meq Medications Administered Current Inpatient Medications Acetaminophen (Acetaminophen 325 Mg Tab) 650 mg PO [facility] Stop: 06/23/25 17:59 Last Admin: 05/23/25 13:16 Dose: 650 mg Hydrocodone Bitart/Acetaminophen (Hydrocodone/Acetaminophen 10/325 Tab) 1 tab PO Q6H PRN PRN Reason: Pain Stop: 06/06/25 17:49 Last Admin: 05/23/25 22:47 Dose: 1 tab Al Hydrox/Mg Hydrox/Simethicone (Aluminum/Magnesium Susp 30 Ml Udc) 30 ml PO Q6H PRN PRN Reason: Dyspepsia Stop: 06/21/25 17:55 Melatonin (Melatonin 3 Mg Tab) 3 mg PO HS PRN PRN Reason: Insomnia Stop: 06/21/25 17:55 Last Admin: 05/23/25 22:47 Dose: 3 mg Ondansetron HCl (Ondansetron Inj 2 Mg/Ml 2 Ml Vial) 4 mg IV Q6H PRN PRN Reason: Nausea Stop: 06/21/25 17:55 Potassium Chloride (Potassium Chloride Crtab 20 Meq Tabcr) 40 meq PO QAM TA Stop: 06/24/25 09:09 Last Admin: 05/25/25 09:14 Dose: 40 meq PG Care Time/CCT Total # of Minutes Spent Total Time Spent with Patient: Total time spent is greater than 50% in coordination of care (as documented) at patient's floor/unit and/or counseling patient: Coding Level of Care Code 76990 SUB INP/OBS CARE 2/35MIN Diagnoses Rhabdomyolysis M62.82 Rhabdomyolysis type: non-traumatic Time Spent (min) 35 (1) Rhabdomyolysis Rhabdomyolysis type: non-traumatic Qualified Code(s): M62.82 - Rhabdomyolysis
[2025-05-25 22:43] VITALS: PULSE 50; TEMP 98.1
[2025-05-26 07:58] VITALS: BP 142/68; RESP 18; O2SAT 99
[2025-05-26 08:04] LABS: Alanine Aminotransferase 87.0 U/L (7-52); Albumin Globulin Ratio 1.8 (0.9-2); Alkaline Phosphatase 128.0 U/L (34-104); Anion Gap 7.0 (3-11); Bilirubin,Total 1.0 mg/dl (0.2-1.0); Blood Urea Nitrogen 11.0 mg/dl (6-23); Calcium 9.5 mg/dl (8.6-10.3); Carbon Dioxide 26.0 mmol/L (21-32); Chloride 105.0 mmol/L (98-107); Creatinine Clr Calc Pharmacy 170.3 ml/min; Globulin 2.5 gm/dl (2.5-4.0); Glucose 99.0 mg/dl (70-99(Fasting)); Potassium 4.0 mmol/L (3.5-5.1); Sodium 138.0 mmol/L (136-145); Total Protein 7.0 gm/dl (6.0-8.3)
[2025-05-26 08:24] LABS: Creatine Kinase 5508.0 U/L (30-223)
--- NOTE | 2025-05-26 17:27 | Discharge Summary ---
Discharge Summary Date of Service May 26, 2025 Principal Dx & Hospital Course #1 = Principal Diagnosis (1) Rhabdomyolysis: Mr. 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 Vasquez and there was low concern for compartment syndrome. his CK level remained elevated at 9144 and creatinine slightly increase from .88---> 1.18, he's has hypokalemia, hypomagnesemia and s/p repletion. spoke wt Dr. Vasquez at 5pm on 05/25, decision was to turn off fluid, oral hydration to determine if creatinine is stable on 05/26/2025, creatinine downtrend to 0.82 with potassium of 4.0 his parent been updated throughout the day he will has close follow up with sport medicine office patient understand importance of oral hydration and was dc on 05/26/2025 morning Plan Mr. Lee Meyer is a 20 yo male with no PMH, he been having resuming strenous exericse for one week, on 05/22/2025, presented with one day of significant upper extremity pain, and found to has rhabdomolysis with CK > 15k, started on IV fluid, orthopedic following the patient, monitor for compartment sydnrome his ck level still elevated at 9500-48307, IV fluid increased to 300 cc/hours. acute rhabdomyolysis upper extremity pain his CK level since plateau however, creatinine improve to .8---> 1.2 Dr. Vasquez provide valuable input over his care low risk of KERRY, but plan for monitor on oral hydration overnight if creatinine downtrend, then dc sport medicine team also agreed for daily creatinine value Admission HPI Per Admitting Provider Mr. 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 however, since yesterday he has significant upper extremity pain and came here for evaluation, found to has hypertension with SBP of 177/[place] [address] and AST 163 and ALT of 57, he will be admitted to medicine services for IV fluid for his rhabdomyolysis, denied any dark color urine, hematuria, no abdominal pain, no nausea, no vomiting discussed avoiding heavy lifting for 4 weeks and encourage drinking 8-10 glass of water daily for next 1-2 weeks his mother and his grandmother was updated in person Discharge Exam VITALS: Reviewed. WEIGHT/BMI reviewed. GEN: Healthy appearing, well-developed, NAD. MSK: + for edema of upper extremity no crepitus appreciated tender to palpation -Head: NC/AT; NECK: Supple, with no masses. CV: RRR, no m/r/g. LUNGS: on room air; no respiratory distress no wheezing Back: no presacral edema SKIN: Warm, well perfused. No skin rashes or abnormal lesions. NEURO: AAOx3; Discharge Plan Discharge Items Patient Disposition: Home - Self-Care Reason For Visit: RHADOMLYOSIS, CK OF 15K Discharge Diagnosis: rhabdomyolysis, hypokalemia, hypomagnesemia Condition on Discharge: Fair Activity: Per Instructions section Lifting: Gradually increase as tolerated Bathing: No limitations Weightbearing: Full weightbearing Non-emergency contact: Primary Care Provider Call non-emergency contact if: you have any medication questions Follow-up/Referrals: [facility] [Primary Care Provider] - Diet: Regular Addtl Attending Provider Instructions: follow up with sport medicine office you will need monitor for CK level, creatinine function while you are drinking oral hydration, your sport medicine doctor will monitor for you sodium, potassium level Pending Studies at Discharge: Yes Studies:: CK, calcium, potassium, creatinine function, sodium function Stand-Alone Forms: Interface21, Smoking Cessation Medications and DC Order Prescriptions: No Action No Known Home Medications Discharge Orders: Discharge Order (Routine); Ordered 05/26/25 Ordered By: Zelda Abdullahi/Other Patient Handouts: Rhabdomyolysis Admission Data Admit Date/Time: 05/22/25 17:54 Attending Provider: Zelda Lackey Admit Provider: Zelda Lackey Primary Care Provider: [facility] Other Providers: Zelda Lackey Other Interventions: Discharge Summary Assessment (RN) Last Done: 05/26/25 09:29 Hospital Stay Data Consultations 05/22/25 17:33 ED Decision to Admit Stat Pending Results Patient Have Any Pending Studies at Discharge: Yes Discharge Instructions Given to Patient (Per Discharging Provider) follow up with sport medicine office you will need monitor for CK level, creatinine function while you are drinking oral hydration, your sport medicine doctor will monitor for you sodium, potassium level Total Time Total Time Spent Total Time Spent (In Minutes): 15 Coding Level of Care Code 68304 IN/OBS DISCH 30 MIN/LESS Diagnoses Rhabdomyolysis M62.82 Rhabdomyolysis type: non-traumatic Time Spent (min) 15
== END 2025-05-26 10:21 | disposition home or self-care (01) | DRG 558 ==
LOC: SUATTDRO → ED 15:59 → 3N 17:54